=== PATIENT | male | born 1945 | race Caucasian/White ===

== ENCOUNTER 2017-08-20 10:51 | Emergency (ER) | payer MEDICARE, OTHER ==
[2017-08-20 11:20] VITALS: TEMP 97.9
--- NOTE | 2017-08-20 11:46 | RAD ---
EXAM DESCRIPTION: Chest,2 Views CLINICAL HISTORY: abd pain 2 weeks COMPARISON: None available FINDINGS: The cardiomediastinal silhouette is unremarkable. There is no airspace consolidation or pleural effusion. The bronchovascular markings are within normal limits, and the lungs are not hyperinflated. There is no pneumothorax or acute fracture. IMPRESSION: Negative exam. Electronically signed by: Ochoa Henley MD 08/20/2017 11:45 AM CDT
--- NOTE | 2017-08-20 11:46 | RAD ---
EXAM DESCRIPTION: Abdomen Flat Upright CLINICAL HISTORY: 72 years Male, abd pain 2 weeks COMPARISON: None. FINDINGS: Upright and supine views of the abdomen show no free suboptimally gas or intra-abdominal air-fluid level. The bowel gas pattern is nonobstructive. There are a few nondilated gas-filled small bowel loops in the right mid abdomen, nonspecific. No suspicious intra-abdominal calcification or mass. Calcifications in the left side of the pelvis are likely of vascular origin. There are moderate multilevel degenerative changes in the lower thoracic and lumbar spine including mild levoscoliosis. IMPRESSION: Several nondilated gas-filled small bowel loops in the right mid abdomen suggest the possibility of enteritis. No obstruction or other acute intra-abdominal abnormality. Probable pelvic phleboliths. If clinically suspicious of a distal ureteral calculus, noncontrast CT is suggested. Electronically signed by: Ochoa Henley MD 08/20/2017 11:44 AM CDT
[2017-08-20] MEDS ORDERED: SODIUM CHLORIDE 0.9% 1000ML 1,000 ML IVS ONE (12:10)
--- NOTE | 2017-08-20 13:18 | CT ---
EXAM DESCRIPTION: Abdomen/Pelvis w/Contrast CLINICAL HISTORY: abd pain, eleva alkphos, ddimer, and ck COMPARISON: None. TECHNIQUE: Postcontrast CT images of the abdomen and pelvis are obtained. This exam was performed according to our departmental dose-optimization program, which includes automated exposure control, adjustment of the mA and/or kV according to patient size and/or use of iterative reconstruction technique . FINDINGS: Lung apices show increased AP diameter of the chest and mild emphysematous changes. Coronary artery calcifications are partly visualized. Small retrocardiac hiatal hernia seen. Circumferential wall thickening in the distal esophagus is noted. There are 2 numerous to count ill-defined low-attenuation lesions throughout the liver. The largest in the dome of the right lobe measures 8.7 cm. Spleen is unremarkable. Left adrenal gland mass is difficult to identify. The right is unremarkable. The gallbladder is contracted and unremarkable. There is moderate to severe diffuse fatty replacement of the pancreas. Kidneys show no abnormal calcifications. No ureteral obstruction. Urinary bladder is contracted with diffuse circumferential wall thickening probably secondary to poor distention. Mild enlargement of the prostate is seen measuring 4.8 x 5.8 cm. Appendix is unremarkable. No small bowel obstruction. Scattered diverticuli of the sigmoid colon without associated inflammatory changes or fluid collections are seen. Heterogeneous enhancing ill-defined mass in the left upper quadrant of the abdomen is seen between the kidney, spleen, and tail the pancreas measuring at least 7.8 x 4.6 cm. There are multiple enlarged lymph nodes in the epigastric, periportal, and retroperitoneal region. Largest epigastric lymph node measures approximately 2.5 cm. Left periaortic lymph node below the renal vessels measures 2.1 cm. There is a more inferior 2.7 cm lymph node. Infrarenal abdominal aortic aneurysm measures 2.8 cm. Follow-up imaging every 5 years is recommended. Paracaval lymphadenopathy is seen. No significant iliac chain lymphadenopathy seen. Small bilateral fat-containing inguinal hernias are seen. Osseous structures show partial fusion and degenerative changes of the sacroiliac joints. No compression fracture deformity is seen. There are multiple lytic lesions throughout the osseous structures including the nasal spine, pelvis, and hips. Small diverticulum of the upper portion of the duodenum is seen. 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 Ill-defined soft tissue mass extending from the superior pole of the left kidney to the left upper quadrant likely represents metastatic disease. 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 Small hiatal hernia. There is esophageal wall thickening which may be related to hiatal hernia versus esophageal mass. Diffuse osseous metastatic disease is seen. Enlarged prostate. Electronically signed by: Elvis Roa MD 08/20/2017 1:17 PM CDT
[2017-08-20 14:20] VITALS: O2SAT 94
--- NOTE | 2017-08-20 14:29 | ED.PDOC ---
History of Present Illness - General Chief Complaint: Abdominal Pain Stated Complaint: Abdominal bloating/distention Time Seen by Provider: 08/20/17 10:53 Source: patient Exam Limitations: no limitations - History of Present Illness Initial Comments: the patient is a 72-year-old male presenting to the emergency room secondary to a progression of symptoms over the last month or so. The patient has been having some feeling of fullness in his abdomen along with some mild discomfort after eating for the better part of a month. Over the last week or so he has been only able to take liquids andliquids even at lessening amounts at one time. No fevers. Nausea has been mild. No diarrhea. He has had some mild constipation. There is minimal weight loss. He has not seen his primary care doctor essentially in 5 years. He has never had any endoscopies. He does have a history of some reflux and takes Prevacid and takes one Aleve daily. The patient has otherwise been in good health. He does report that his father dying from some form of abdominal metastatic process in his later years. the patient is fairly pale. He is fairly weak. Initially on getting the patient around his heart rate did get into the 140s. He did have some mild dizziness. Timing/Duration: unsure Severity: moderate Improving Factors: nothing Worsening Factors: movement Associated Symptoms: chest pain, loss of appetite, malaise, nausea/vomiting, shortness of breath, weakness Allergies/Adverse Reactions: Allergies NO KNOWN ALLERGY Allergy (Verified 08/20/17 11:21) Review of Systems - Review of Systems Constitutional: States: malaise, weakness EENTM: States: no symptoms reported Respiratory: States: short of breath - with activity Cardiology: States: no symptoms reported Gastrointestinal/Abdominal: States: abdominal pain, constipation - mildild, nausea - mild Genitourinary: States: no symptoms reported Musculoskeletal: States: back pain - hronic Skin: States: see HPI Neurological: States: weakness - mild and generalized Endocrine: States: unexplained weight loss All other Systems: No Change from Baseline Past Medical History (General) - Patient Medical History Hx Stroke: No Hx Congestive Heart Failure: No Hx Diabetes: No Hx Gastroesophageal Reflux: Yes Surgical History: no surgical history - Vaccination History Hx Influenza Vaccination: No Hx Pneumococcal Vaccination: No - Social History Hx Tobacco Use: Yes - Quit 2006 Hx Alcohol Use: No Family Medical History - Family History Father Family History: No Known Living Status: Physical Exam - Physical Exam General Appearance: Alert, No apparent distress, Other - he is pale Eye Exam: bilateral normal Ears, Nose, Throat: hearing grossly normal, normal ENT inspection, normal pharynx Neck: full range of motion, supple Respiratory: chest non-tender, lungs clear, normal breath sounds, no respiratory distress, no accessory muscle use Cardiovascular/Chest: normal peripheral pulses, no edema, tachycardia Peripheral Pulses: radial,right: 2+, radial,left: 2+, dorsalis pedis,right: 2+, dorsalis pedis,left: 2+ Gastrointestinal/Abdominal: non tender, soft, other - no rebound or peritoneal signs. No pulsatile palpable mass. 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 The patient is significantly dehydrated and has received a liter of IV fluids. This has helped the tachycardia and weakness significantly. He is feeling much better after being rehydrated. The patient does appear to have a metastatic process in the abdomen with a source that is not yet determined. The patient is being transferred for GI evaluation for his inability to keep himself hydrated orally. I have discussed the patient with Dr. Springer. He will of course need to see oncology following this. He is feeling significantly better with the IV fluids and will be allowed to go by private vehicle as per his request. A PSA is pending at this time. Transferring for specialty care. IV will be left in place secondary to the patient being a fairly difficult access. He is low risk for abuse. - Results/Orders Results/Orders: Laboratory Tests 08/20/17 08/20/17 08/20/17 11:10 11:30 11:30 WBC RBC Hgb Hct MCV MCH MCHC RDW Plt Count MPV Absolute Neuts (auto) Absolute Lymphs (auto) Absolute Monos (auto) Absolute Eos (auto) Neutrophils % Neutrophils % (Manual) Lymphocytes % Lymphocytes % (Manual) Monocytes % Monocytes % (Manual) Eosinophils % Basophils % Band Neutrophils Eosinophils Metamyelocytes Platelet Estimate Normal RBC Morphology PT 12.6 H INR 1.120 PTT (SP) 28.9 D-Dimer, Quantitative 5413 H* Sodium 138 Potassium 4.1 Chloride 98 L Carbon Dioxide 27 Anion Gap 17.1 BUN 20 H Creatinine 1.17 BUN/Creatinine Ratio 17.1 Random Glucose 103 Serum Osmolality 278.5 Calcium 10.0 Magnesium Total Bilirubin 0.9 AST 113 H ALT 31 Alkaline Phosphatase 480 H Creatine Kinase 613 H* CK-MB (CK-2) 1.7 CK-MB (CK-2) % 0.28 Troponin I < 0.02 B-Natriuretic Peptide 127.0 H Serum Total Protein 8.0 Albumin 3.9 Globulin 4.1 H Albumin/Globulin Ratio 1.0 L Amylase 23 L Lipase Urine Color Yellow Urine Appearance Clear Urine pH 6.0 Ur Specific [place] 1.015 Urine Protein Negative Urine Glucose (UA) Negative Urine Ketones Negative Urine Blood Negative Urine Nitrite Negative Urine Bilirubin Negative Urine Urobilinogen 2.0 H Ur Leukocyte Esterase Negative Urine RBC 0-1 Urine WBC 1-3 Ur Epithelial Cells 1-3 Amorphous Sediment 1+ Urine Bacteria Rare Urine Mucus Moderate 08/20/17 08/20/17 11:30 11:30 WBC 5.6 RBC 4.12 L Hgb 13.3 L Hct 38.5 L MCV 93.4 MCH 32.2 H MCHC 34.5 RDW 13.1 Plt Count 145 MPV 8.8 Absolute Neuts (auto) Not Reportable Absolute Lymphs (auto) Not Reportable Absolute Monos (auto) Not Reportable Absolute Eos (auto) Not Reportable Neutrophils % Not Reportable Neutrophils % (Manual) 72.0 Lymphocytes % Not Reportable Lymphocytes % (Manual) 15.0 Monocytes % Not Reportable Monocytes % (Manual) 2.0 Eosinophils % Not Reportable Basophils % Not Reportable Band Neutrophils 5.0 Eosinophils 4.0 Metamyelocytes 2.0 Platelet Estimate Normal Normal RBC Morphology Normal rbc morph PT INR PTT (SP) D-Dimer, Quantitative Sodium Potassium Chloride Carbon Dioxide Anion Gap BUN Creatinine BUN/Creatinine Ratio Random Glucose Serum Osmolality Calcium Magnesium 1.8 Total Bilirubin AST ALT Alkaline Phosphatase Creatine Kinase CK-MB (CK-2) CK-MB (CK-2) % Troponin I B-Natriuretic Peptide Serum Total Protein Albumin Globulin Albumin/Globulin Ratio Amylase Lipase 17 L Urine Color Urine Appearance Urine pH Ur Specific [place] Urine Protein Urine Glucose (UA) Urine Ketones Urine Blood Urine Nitrite Urine Bilirubin Urine Urobilinogen Ur Leukocyte Esterase Urine RBC Urine WBC Ur Epithelial Cells Amorphous Sediment Urine Bacteria Urine Mucus chest x-ray is essentially clear. CT scan of the abdomen and pelvis shows a hiatal hernia. There is significant distal esophageal wall thickening. There are multiple metastases in the liver and in the bones. There is a left adrenal gland mass. There is a 7.8 x 4.6 cm mass between the left kidney, spleen and pancreas. There is moderate prostate enlargement. EKG shows a heart rate of 96 bpm. Maurice is within normal limits. No acute ST segment changes definitive for ischemia. Departure - Departure Clinical Impression: Dehydration, Metastasis of unknown origin Disposition: Transfer to Hospital Transfer to Outside Facility - Transfer Information Accepting Provider:: dr piedra Accepting Facility: [facility] Reason for Transfer: required specialist not available
[2017-08-20 15:13] VITALS: BP 127/84
== END 2017-08-20 14:53 | disposition short-term general hospital (02) ==
LOC: ER 10:51
DX: E86.0 Dehydration (principal); C79.9 Secondary malignant neoplasm of unspecified site; K21.9 Gastro-esophageal reflux disease without esophagitis; Z87.891 Personal history of nicotine dependence
CPT/HCPCS: 36415; 71020; 74010; 74177; 80053; 81001; 82150; 82550; 82553; 83690; 83735; 83880; 84484; 85025; 85379; 85610; 85730; 93005; G0103; J7030